=== PATIENT | female | born 1975 | race Hispanic/Latino ===

== ENCOUNTER 2024-05-23 02:31 | Emergency (ER) | payer BC ==
[~2024-05-23] VITALS: Ht 172.7 cm; Wt 94.3 kg
[~2024-05-23 02:31] MED LIST: ATOR40TA69 PO; LOSA25TA41 PO; METF-444 PO
--- NOTE | 2024-05-23 02:57 | ERN ---
ED Note History of Present Illness Stated Complaint: PAIN TO BACK OF HEAD AFTER FALLING BACK OFF STOOL Chief Complaint: Mechanical Fall Time Seen by MD: 02:34 Time Seen by Midlevel: 02:34 Dictation: The patient is a 49-year-old female with history of hypertension, arrhythmia who presents to the emergency department after falling from a bar stool prior to arrival. Per patient's patient did have beers today. Reports he did not witnessed the fall because he was turned around but patient fell back from the stool. Denies any LOC, denies any nausea or vomiting, denies any use of blood thinners. Allergies: Coded Allergies: No Known Allergies (Unverified Allergy, Unknown, 04/15/24) Home Meds Active Scripts Metformin HCl (Metformin HCl) 500 Mg Tablet, 1 TAB PO BID for 30 Days, #60 TAB 0 Refills Prov:SUSIE BURGER MD 04/17/24 Atorvastatin Calcium (LIPITOR) 40 Mg Tablet, 40 MG PO HS, #30 TAB 0 Refills Prov:SUSIE BURGER MD 04/17/24 Reported Medications Losartan Potassium (Losartan Potassium) 25 Mg Tablet, 1 TAB PO DAILY for 30 Days, #30 TAB 0 Refills 04/16/24 Past Medical History Past Medical History: Heart Disease, Hypertension Surgical History: Unknown Surgical History Other: BILATERAL WRIST, LEFT FOOT RN Note Reviewed/Agreed w/PFSH: Yes Review of System Dictation Constitutional: Negative for fever,chills, and weight loss Eyes: Negative for injury, pain,redness, and discharge ENT: Negative for injury,pain or swelling Cardiovascular: Negative for chest pain, palpitations, and edema Respiratory: Negative for shortness of breath, cough, and wheezing, Abdomen/GI: Negative for abdominal pain, nausea, vomiting, diarrhea, and constipation Back: Negative for injury and pain : Negative for injury, bleeding and discharge MS/Extremity: Negative for injury and deformity Skin: Negative for rash, and discoloration Neuro: Negative for weakness, numbness, tingling, and seizure positive for headache Psych: Negative for suicide ideation, homicidal ideation, and hallucinations Initial Vital Sign VS Vital Signs Date Time Temp Pulse Resp B/P (MAP) Pulse Ox O2 Delivery O2 Flow Rate FiO2 05/23/24 02:33 98.6 96 20 130/97 97 Room Air 05/23/24 03:13 0 21 Physical Exam Dictation Vital Signs reviewed General Appearance: Drowsy, oriented x 2, no acute distress, well developed, nourished. Head and Face: non-traumatic. Eyes: PERRL, pink conjunctivas, eyelid no trauma, anterior chamber with arcus senilis. Ears: Pinnas intact and no signs of trauma or erythema ear canals clear and no discharge TM no erythema Nose: No discharge, no bleeding. Oropharynx: Mouth normal, tongue pink. pharynx clear,no erythema, tonsils no exudates, no abscesses noted, mucous membrane moist Neck: Supple, non-tender, no thyromegaly, no masses, no JVD, no bruits Breast:Deferred Chest:No tenderness, no crepitus, no paradoxical movement, no retractions Lungs:Clear, well-ventilated, symmetric, no rales, no wheezing, no rhonchi, no stridor, good breath sounds bilaterally Heart: Regular rate, regular rhythm, no murmur, no gallops Vascular: no peripheral edema, Abdomen: Soft, positive bowel sounds, nondistended, no guarding, nontender, no rebound, no masses no hepatomegaly, no splenomegaly, no Norman's sign, no hernias. Rectal: Deferred Genital: Deferred Neurological: Normal speech, motor function intact, sensory function intact Musculoskeletal: Neck nontender, full range of motion, back nontender, full range of motion, Extremities: nontender, full range of motion Skin: Color pink, dry, no turgor, no rash, no lacerations, no abrasions, no contusions. Hematoma noted to back of head Lymphatic: Deferred Results (Laboratory/Radiology) Laboratory/Radiology Laboratory Tests Test 05/23/24 03:12 White Blood Count 8.8 K/uL (4.8-10.8) Red Blood Count 4.58 MIL/uL (4.00-5.50) Hemoglobin 14.6 g/dL (12.0-16.0) Hematocrit 43.0 % (36-48) Mean Corpuscular Volume 93.9 fL (79-99) Mean Corpuscular Hemoglobin 31.9 pg (27.0-33.0) Mean Corpuscular Hemoglobin Concent 34.0 g/dL (32.0-36.0) Red Cell Distribution Width 13.2 % (11.0-15.5) Platelet Count 261 K/uL (130-400) Mean Platelet Volume 10.6 fL (7.5-10.5) H Immature Granulocyte % (Auto) 0.6 % (0-1) Neutrophils (%) (Auto) 62.5 % (40.0-77.0) Lymphocytes (%) (Auto) 30.5 % (21.0-51.0) Monocytes (%) (Auto) 5.2 % (3.0-13.0) Eosinophils (%) (Auto) 0.7 % (0.0-8.0) Basophils (%) (Auto) 0.5 % (0.0-5.0) Neutrophils # (Auto) 5.5 K/uL (1.8-7.7) Lymphocytes # (Auto) 2.7 K/uL (1.0-4.8) Monocytes # (Auto) 0.5 K/uL (0.1-1.0) Eosinophils # (Auto) 0.06 K/uL (0.00-0.70) Basophils # (Auto) 0.04 K/uL (0.00-0.20) Absolute Immature Granulocyte (auto 0.05 K/uL (0-1) Nucleated Red Blood Cells 0.0 % (0.0-0.19) Prothrombin Time 10.5 SEC (9.6-11.6) Prothromb Time International Ratio <= 0.93 (0.85-1.15) Activated Partial Thromboplast Time 22.2 SEC (26.3-35.5) L Sodium Level 142 mmol/L (136-145) Potassium Level 3.7 mmol/L (3.5-5.1) Chloride Level 108 mmol/L (101-111) Carbon Dioxide Level 24 mmol/L (21-32) Blood Urea Nitrogen 12 mg/dL (7-18) Creatinine 0.7 mg/dL (0.5-1.0) Glomerular Filtration Rate Calc 105 mL/min (>90) Random Glucose 142 mg/dL (70-105) H Total Calcium 8.4 mg/dL (8.5-10.1) L Total Creatine Kinase 52 U/L (21-232) # Troponin I High Sensitivity < 4 ng/L (4-50) L Serum Test, Qualitative NEGATIVE (NEGATIVE) Serum Alcohol 137 mg/dL (0-10) H ED Course ED Course Orders Procedure Category Date Status Time Cbc With Differential LAB 05/23/24 Complete 02:53 Chest 1vw RAD 05/23/24 Taken 02:53 12 Lead Ekg Tracing- EKG 05/23/24 Logged Technical 02:53 0.9%Nacl 1000ml (Ns PHA 05/23/24 Complete 1000ml) 03:00 Ondansetron 4mg Inj PHA 05/23/24 Complete (Zofran 4mg Inj) 03:00 Creatine Kinase, Total LAB 05/23/24 Complete 02:53 Troponin I High LAB 05/23/24 Complete Sensitivity 02:53 Ct Head/Brain W/O CT 05/23/24 Taken Contrast 02:53 Ct Cervical Spine W/O CT 05/23/24 Taken Contrast 02:53 Alcohol, Blood LAB 05/23/24 Complete 02:53 Basic Metabolic Panel LAB 05/23/24 Complete 02:53 Pt And Ptt LAB 05/23/24 Complete 02:53 Testing, LAB 05/23/24 Complete Serum Hcg 03:12 Current Medications Medications (Trade) Dose Ordered Sig/Nancy Route PRN Reason Start Time Stop Time Status Last Admin Dose Admin Ondansetron HCl (zoFRAN 4MG INJ) 4 mg ONCE ONCE IVP 05/23/24 03:00 05/23/24 03:01 DC 05/23/24 03:28 Sodium Chloride 1,000 ml @ 0 mls/hr ONCE ONCE IV 05/23/24 03:00 05/23/24 03:01 DC 05/23/24 03:28 Vital Signs Date Time Temp Pulse Resp B/P (MAP) Pulse Ox O2 Delivery O2 Flow Rate FiO2 05/23/24 04:40 98.4 90 18 110/74 98 Room Air* 0 21 05/23/24 03:13 90 18 118/76 98 Room Air* 0 21 05/23/24 02:33 98.6 96 20 130/97 97 Room Air Medical Decision Making MDM MDM: Differential diagnosis: Concussion, intracranial hemorrhage, depressed skull fracture, subdural hematomas, superficial hematoma Rationale: Tests considered and ordered secondary to shared decision making include: Previous outside records reviewed: Old ER visits. Risk of complication and/or morbidity or mortality of patient management: None Medications-Per medication reconciliation Need for hospitalization: Patient does not meet criteria for hospitalization. Need for emergency major/minor surgery: No There are no social concerns with this patient. Prescription drug management Prescriptions will include symptomatic care Patient's prior external medical records from other ER visits were reviewed by me as indicated. Prior testing and results from previous visits were reviewed. Prior tests were taken into account with medical decision making and resource utilization, independent historian/historians were used to obtain complete medical history. I independently interpreted the test that were performed, results were reviewed by me and considered findings on radiology if ordered. Medical management and examination interpretation discussions were had by me with other qualified healthcare professionals as indicated for the patient's care. Problem List Problem List: (1) Fall (2) Closed head injury (3) Scalp hematoma (4) Alcohol intoxication DX & DISP Disposition: Discharge Departure Impression: Primary Impression: Closed head injury Additional Impressions: Scalp hematoma, Fall, Alcohol intoxication Condition: Stable Additional Instructions: Patient and the caregiver have been informed of all the diagnostic tests and the imaging conducted during the today's visit to the emergency room and has verbalized understanding of the results I have personally reviewed and interpreted all diagnostic exams performed here in the ER today as well as the vital signs documented by the nursing staff. The patient is now being discharged to home and should follow up with the primary care physician or the specialist as directed by the ER staff. Follow-up with primary care provider in 1 to 2 days. Take medications as directed here in the emergency room. Okay to continue home medications unless otherwise discussed during your visit in the emergency room today. Return to your nearest emergency room if symptoms worsen or if there is no improvement. Call 911 if you need immediate assistance. Take Tylenol or Motrin [id number] as needed and if no contraindications are present. Increase oral hydration. A wound culture or urine culture was ordered here in the emergency room department please follow-up with primary care provider and advise them to get repeat ports from our facility. If you had any Patrick wrap/splints that were applied here, please do not remove them until you see your primary care or specialty. Extensive counseling on alcohol abstinence and lifestyle changes discussed patient and spouse verbalized understanding Referrals: JEET RICO MD (PCP) JIMMY REEVES May 23, 2024 02:57 JOSEE VALDERRAMA MD May 23, 2024 04:42
[2024-05-23] MEDS: 0.9%NACL 1000ML 1,000 ML IV ONE (03:28)
[2024-05-23] MEDS: ondanSETRON 4MG INJ IVP ONE (03:28)
[2024-05-23 03:32] LABS: BASOPHILS # (AUTO) 0.04 K/uL (0.00-0.20); BASOPHILS % (AUTO) 0.5 % (0.0-5.0); EOSINOPHILS # (AUTO) 0.06 K/uL (0.00-0.70); EOSINOPHILS % (AUTO) 0.7 % (0.0-8.0); IMMATURE GRANULOCYTE ABSOLUTE 0.05 K/uL (0-1); LYMPHOCYTES # (AUTO) 2.7 K/uL (1.0-4.8); LYMPHOCYTES % (AUTO) 30.5 % (21.0-51.0); MEAN CORPUSCULAR HEMOGLOBIN 31.9 pg (27.0-33.0); MEAN CORPUSCULAR VOLUME 93.9 fL (79-99); MONOCYTES # (AUTO) 0.5 K/uL (0.1-1.0); MONOCYTES % (AUTO) 5.2 % (3.0-13.0); NEUTROPHILS # (AUTO) 5.5 K/uL (1.8-7.7); NEUTROPHILS % (AUTO) 62.5 % (40.0-77.0); PLATELET COUNT (AUTO) 261 K/uL (130-400); RED BLOOD CELL COUNT(AUTO) 4.58 MIL/uL (4.00-5.50); RED CELL DISTRIBUTION WIDTH 13.2 % (11.0-15.5); WHITE BLOOD COUNT (AUTO) 8.8 K/uL (4.8-10.8)
[2024-05-23 03:41] LABS: CREATININE 0.7 mg/dL (0.5-1.0); POTASSIUM 3.7 mmol/L (3.5-5.1)
[2024-05-23 03:48] LABS: INR <= 0.93 (0.85-1.15); PROTHROMBIN TIME 10.5 SEC (9.6-11.6)
[2024-05-23 03:50] LABS: PARTIAL THROMBOPLASTIN TIME 22.2 SEC (26.3-35.5)
[2024-05-23 04:40] VITALS: BP 110/74; PULSE 90; RESP 18; TEMP 98.4; O2SAT 98
--- NOTE | 2024-05-23 06:16 | EKG ---
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
--- NOTE | 2024-05-23 08:31 | HMCIMG ---
CT CERVICAL SPINE W/O CONTRAST REASON: fall, head trauma COMPARISON: None TECHNIQUE: Images are obtained from skull base to the upper thoracic spine in the axial plane. Sagittal and coronal reconstruction images were then performed. FINDINGS: There are normal appearing vertebral bodies. Alignment is unremarkable and disc interspace heights are well preserved. There are mild degenerative changes in the facets. There is no evidence of fracture or subluxation. Soft tissues appear normal as well. IMPRESSION: 1. Mild cervical degenerative changes. 2. No acute finding, no evidence of fracture. CT was performed with one or more following dose reduction techniques: automated exposure control, adjustment of the mA and kv according to patient's size, or use of a iterative reconstruction technique.
--- NOTE | 2024-05-23 08:34 | HMCIMG ---
Exam: NONCONTRAST CT BRAIN REASON: fall, head trauma. COMPARISON: None. TECHNIQUE: Images are obtained from vertex to the skull base. The exam was performed without IV contrast. FINDINGS: There is normal appearing brain parenchyma. There are no focal mass lesions. There is is no evidence of intracranial hemorrhage or acute stroke. Ventricles and sulci appear normal. Posterior fossa and brainstem structures are unremarkable. There is a scalp contusion in the occipital region without evidence of associated fracture. Soft tissues appear otherwise unremarkable IMPRESSION: 1. Normal intracranial findings. 2. Right occipital scalp contusion without evidence of fracture.+ CT was performed with one or more following dose reduction techniques: automated exposure control, adjustment of the mA and kv according to patient's size, or use of a iterative reconstruction technique.
--- NOTE | 2024-05-23 08:50 | HMCIMG ---
CHEST 1VW REASON: fall COMPARISON: 04/15/2024 FINDINGS: Single view of the chest was obtained. Lungs are clear. Heart size is normal. There is no pulmonary vascular congestion. Mediastinum and bony thorax appear unremarkable. IMPRESSION: 1. Normal single view chest x-ray.
== END 2024-05-23 05:08 | disposition home or self-care (01) ==
LOC: EDH 02:31
DX: S00.03XA Contusion of scalp, initial encounter (principal); F10.129 Alcohol abuse with intoxication, unspecified; I10 Essential (primary) hypertension; Z79.84 Long term (current) use of oral hypoglycemic drugs; Z79.899 Other long term (current) drug therapy; W08.XXXA Fall from other furniture, initial encounter; Y93.89 Activity, other specified; Y92.89 Other specified places as the place of occurrence of the external cause; Y99.8 Other external cause status
CPT/HCPCS: 99285; 70450; 96374; 71045; 82550; 84484; 80048; 84703; 85025; 85610; 85730; 36415; 72125; 93005; J7030; J2405